=== PATIENT | male | born 1975 | race Two or more races ===

== ENCOUNTER 2019-09-08 16:47 | Emergency (ER) | payer OTHER ==
[~2019-09-08] VITALS: Ht 188 cm; Wt 74.8 kg
--- NOTE | 2019-09-08 16:50 | NUR ---
PT [id number] FROM AN ALLEY. PT WAS FOUND PASSED OUT AND WAS NOT AROUSABLE. PT TO ROOM 8. GOWNED, HYPOTENSIVE, AGONAL BREATHING NOTED AND SATTING 84% [employer]. IV LINE IS ESTABLISHED [employer]ER W/ APPROX 300ML OF NS GIVEN. 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 AWAITING MD FRIED.
--- NOTE | 2019-09-08 16:55 | NUR ---
dr hudson at bedside for eval.
--- NOTE | 2019-09-08 16:58 | NUR ---
NARCAN 2MG GIVEN.
[2019-09-08] MEDS ORDERED: IV NS 0.9% 1,000 ML BAG IV ONE (17:00)
[2019-09-08] MEDS ORDERED: NALOXONE HCL 0.4 MG/ML AMPUL IV ONE (17:00)
[2019-09-08 17:08] LABS: BASOPHILS # (AUTO) 0.1 /CMM (0.0-0.2); BASOPHILS % (AUTO) 0.6 % (0.0-2.0); EOSINOPHILS % (AUTO) 1.8 % (0.0-6.0); HEMATOCRIT 37 % (39-51); HEMOGLOBIN 12.5 g/dL (13.5-17.5); LYMPHOCYTES # (AUTO) 1.5 /CMM (0.8-4.8); LYMPHOCYTES % (AUTO) 16.2 % (20.0-44.0); MEAN CORPUSCULAR HGB CONC 34 g/dl (31.0-36.0); MEAN CORPUSCULAR VOLUME 85 fL (80-96); MONOCYTES # (AUTO) 0.8 /CMM (0.1-1.30); MONOCYTES % (AUTO) 9.1 % (2.0-12.0); NEUTROPHILS # (AUTO) 6.5 /CMM (1.8-8.9); NEUTROPHILS % (AUTO) 72.3 % (43.0-81.0); PLATELET COUNT (AUTO) 369 /CMM (150-450); RED BLOOD CELL COUNT(AUTO) 4.42 MIL/uL (4.5-6.0)
--- NOTE | 2019-09-08 17:10 | NUR ---
RADAIOLOGY AT BEDSIDE FOR CHEST XRAY.
[2019-09-08 17:12] LABS: APPEARANCE,URINE Clear (CLEAR); BILIRUBIN,URINE Negative (NEGATIVE); BLOOD, URINE Trace-intact Ery/uL (NEGATIVE); COLOR,URINE Yellow (YELLOW); KETONES,URINE Trace (NEGATIVE); LEUKOCYTE ESTERASE ,URINE Negative (NEGATIVE); NITRITE, URINE Negative (NEGATIVE); PROTEIN,URINE 100 mg/dl (NEGATIVE); UGLUCOSE Negative (NEGATIVE); UROBILINOGEN,URINE 0.2 EU/dL (0.2)
[2019-09-08 17:21] LABS: ALANINE AMINOTRANSFERASE 29 U/L (12-78); ALBUMIN 3.8 g/dL (3.4-5.0); ALCOHOL, BLOOD < 3 mg/dL (0-0); ALKALINE PHOSPHATASE 85 U/L (46-116); ASPARTATE AMINOTRANSFERASE 39 U/L (15-37); BILIRUBIN,DIRECT 0.1 mg/dL (0.0-0.2); BILIRUBIN,TOTAL 0.4 mg/dL (0.2-1.0); CALCIUM, SERUM 8.9 mg/dL (8.5-10.1); CARBON DIOXIDE 23 mmol/L (21-32); CHLORIDE 107 mmol/L (98-107); CREATININE 1.5 mg/dL (0.6-1.3); GLUCOSE 85 mg/dL (74-106); POTASSIUM 4.6 mmol/L (3.5-5.1); SODIUM SERUM 143 mmol/L (136-145); TOTAL PROTEIN, SERUM 7.1 g/dL (6.4-8.2); UREA NITROGEN, BLOOD 23 mg/dL (7-18)
[2019-09-08 17:30] LABS: BACTERIA,URINE Few /HPF (None Seen); SQUAMOUS EPITHELIAL CELL,UR Few /HPF (None Seen); WBC,URINE 0-2 /HPF (0-3)
[2019-09-08 17:31] LABS: ACETAMINOPHEN 0 ug/ml (10-30); SALICYLATE 0.5 mg/dL (2.8-20.0)
--- NOTE | 2019-09-08 18:00 | NUR ---
ON MONITOR. STABLE VITALS. PT RESPOND TO PAINFUL STIMULI. ON O2@2L/MIN VIA NC. WILL CONTINUE TO MONITOR.
[2019-09-08] MEDS ORDERED: BUPR75TA8 MT (18:19)
[2019-09-08] MEDS ORDERED: GABA800T11 MT (18:19)
[2019-09-08] MEDS ORDERED: BUPR-319 MT (18:19)
--- NOTE | 2019-09-08 18:51 | NUR ---
covid 19 swab collected and sent to lab
--- NOTE | 2019-09-08 19:05 | NUR ---
ON CONTINUOUS MONITORING AND STILL SHOWING STABLE VITALS. RESPOND TO PAIN STIMULI ONLY. WILL CONTINUE TO MONITOR.
--- NOTE | 2019-09-08 19:15 | NUR ---
PATIENT TAKEN TO CT
--- NOTE | 2019-09-08 19:21 | NUR ---
REPORT TO SYSTEM SAFETY ENGINEER ANTONIO SIMPSON FOR [facility].
[2019-09-09 01:10] VITALS: BP 129/76
== END 2019-09-09 01:12 | disposition home or self-care (01) ==
LOC: ER 16:51 → EDBD 16:51 → ER 09-09 01:12
DX: T40.1X1A Poisoning by heroin, accidental (unintentional), initial encounter (principal); T43.621A Poisoning by amphetamines, accidental (unintentional), initial encounter; G92 Toxic encephalopathy; F11.10 Opioid abuse, uncomplicated; F15.10 Other stimulant abuse, uncomplicated; Y92.89 Other specified places as the place of occurrence of the external cause; Z82.49 Family history of ischemic heart disease and other diseases of the circulatory system; R53.83 Other fatigue; Z86.19 Personal history of other infectious and parasitic diseases; R94.31 Abnormal electrocardiogram [ECG] [EKG]
CPT/HCPCS: 36415; 70450; 71045; 72125; 80048; 80076; 80305; 80307; 80329; 81001; 84484; 85025; 85730; 93005; 96361; 96374; 99285; A4624; C9803; G0480; J7030; L0172; U0003; 81000-TC